=== PATIENT | female | born 1980 | race Caucasian/White ===

== ENCOUNTER 2021-06-22 12:46 | Outpatient (CLI) | payer BC, OTHER ==
--- NOTE | 2021-06-22 14:00 | US ---
EXAMINATION TYPE: US gallbladder DATE OF EXAM: 06/22/2021 COMPARISON: NONE CLINICAL HISTORY: right upper abd quad pain, . RUQ pain x 2 weeks, with occasional nausea EXAM MEASUREMENTS: Liver Length: 18.0 cm Gallbladder Wall: 0.2 cm CBD: 0.4 cm Right Kidney: 13.1 x 6.0 x 5.0 cm Pancreas: Obscured by bowel gas Liver: wnl Gallbladder: wnl Evidence for sonographic Hewitt's sign: No CBD: wnl Right Kidney: No hydronephrosis or masses seen IMPRESSION: 1. Hepatomegaly
[2021-06-22 14:15] LABS: Basophils % (A) 0 %; Eosinophils % (A) 0 %; HCT 32.4 % (34.0-46.0); HGB 10.8 gm/dL (11.4-16.0); Lymphocytes # (A) 0.6 k/uL (1.0-4.8); Lymphocytes % (A) 8 %; MCH 31.1 pg (25.0-35.0); MCHC 33.3 g/dL (31.0-37.0); MCV 93.3 fL (80.0-100.0); Mean Platelet Volume 7.5; Monocytes # (A) 0.7 k/uL (0-1.0); Monocytes % (A) 8 %; Neutrophils # (A) 6.7 k/uL (1.3-7.7); Neutrophils % (A) 83 %; Platelet Count 224 k/uL (150-450); RBC 3.48 m/uL (3.80-5.40); WBC 8.1 k/uL (3.8-10.6)
[2021-06-22 14:25] LABS: ALT 13 U/L (4-34); AST 25 U/L (14-36); African American GFR (CKD) >90 (>60 ml/min/1.73 sqM); Blood Urea Nitrogen 4 mg/dL (7-17); LDH 434 U/L (313-618); Non-African American GFR(CKD) >90 (>60 ml/min/1.73 sqM); Uric Acid 5.3 mg/dL (3.7-7.4)
[2021-06-22 14:32] LABS: Appearance,Urine Clear (Clear); Bilirubin,Urine Negative (Negative); Blood,Urine Negative (Negative); Color,Urine Light Yellow; Glucose,Urine (UA) Negative (Negative); Ketones,Urine 3+ (Negative); Leukocyte Esterase,Urine Negative (Negative); Nitrite,Urine Negative (Negative); PH, Urine 6.5 (5.0-8.0); Protein,Urine Trace (Negative); Specific Gravity,Urine 1.011 (1.001-1.035); Urobilinogen,Urine <2.0 mg/dL (<2.0)
[2021-06-22 14:43] LABS: Creatinine,Urine Random 63.8 mg/dL; Protein/Creatinine Ratio,Urine 0.47
[2021-06-22] MEDS ORDERED: LACTATED RINGERS 1,000 ML IV SCH (15:30)
[2021-06-22] MEDS ORDERED: DEXTROSE 5%-LACTATED RINGERS 1,000 ML IV SCH (15:30)
[2021-06-22] MEDS ORDERED: ACETAMINOPHEN TAB 500 MG TAB PO STA (15:45)
[2021-06-22] MEDS ORDERED: CASIRIVIMAB (REGN10933) (EUA) 600 MG, IMDEVIMAB (REGN10987) (EUA) 600 MG in SODIUM CHLO... IVPB ONE (17:00)
[2021-06-22] MEDS ORDERED: SODIUM CHLORIDE 0.9% 50 ML IVPB ONE (17:00)
[2021-06-22 18:57] VITALS: BP 119/60; PULSE 100; RESP 20; TEMP 97.3
--- NOTE | 2021-07-11 23:50 | P.MSEPDOC ---
Presenting Problems - Arrival Data Date of Arrival on Unit: 06/22/21 Time of Arrival on Unit: 12:46 Mode of Transport: Portable - Complaint OB-Reason for Admission/Chief Complaint: Pain Comment: pt presents with fever this am and headache, and right upper quad pain with orders called over from the office by Dr. Armenta. Medical History - Information : 1 Para: 0 Term: 0 : 0 Abortions: Spontaneous or Elective: 0 Number of Living Children: 0 - Gestational Age Gestational Age by LESLIE (wks/days): 29 Weeks and 3 Days - History Complications: Chronic HTN Review of Systems - Review of Systems Constitutional: No problems Breast: No problems ENT: No problems Cardiovascular: No problems Respiratory: No problems Gastrointestinal: No problems Genitourinary: No problems Musculoskeletal: No problems Neurological: No problems Skin: No problems Vital Signs - Temperature Temperature: 97.3 F Temperature Source: Temporal Artery Scan - Pulse Right Brachial Pulse Rate: 100 Pulse Assessment Method: Automatic Cuff - Respirations Respiratory Rate: 20 Oxygen Delivery Method: Room Air O2 Sat by Pulse Oximetry: 100 - Blood Pressure Right Arm Blood Pressure: 119/60 Blood Pressure Mean: 79 Blood Pressure Source: Automatic Cuff Medical Screen Scoring - Uterine Contractions Frequency From (mins): 0 - Assessment - Baby A Baseline FHR: 150 Heart Rate - NICHD Category: Category I (Normal) NST: Reactive Physician Notification - Physician Notified Physician Notified Date: 06/22/21 Physician Notified Time: 15:14 Physician: Noah Armenta Order Received: Yes - Notification Comment Comment: Pt positive for covid, given monoclonal antibodies, 2 bags of fluids, po tylenol, and obtaining 24 hour urine collection, pt will return tomorrow with urine to run test, and for another NST, bp and temp before discharge wnl, Maternal Triage Index - Maternal Triage Index Presenting for scheduled procedure w/no complaint: No - Stat/Priority 1 Stat Priority 1: No - Urgent/Priority 2 Urgent Priority 2: No - Prompt/Priority 3 Prompt Priority 3: No - Non-Urgent/Priority 4 Non-Urgent Priority 4: No - Scheduled/Requesting Priority 5 Scheduled/Requesting Priority 5: Yes Criteria Met for Priority 5: pt sent in by office per phone call and orders given to dept for PIH labs, covid swab, and ultrasound of the gallbladder Disposition - Disposition OB Disposition: Triage, Discharge to home, Written follow up instructions reviewed Discharge Date: 06/22/21 Discharge Time: 18:30 I agree with the RN Medical Screening Exam: Yes Case reviewed; plan agreed upon as documented in EMR&OBIX.: Yes Diagnosis: COVID-19
== END 2021-06-22 18:30 | disposition home or self-care (01) ==
LOC: FBPOP 12:46
PROVIDERS: ATTEND Obstetrics & Gynecology
DX: O98.512 Other viral diseases complicating pregnancy, second trimester (principal); U07.1 COVID-19; Z3A.29 29 weeks gestation of pregnancy
CPT/HCPCS: 59025; 99215; 96361; 96365; 82570; 84156; 82565; 83615; 84450; 84460; 84520; 84550; 85025; 81003; 87635; 76705; Q0244; 99214

== ENCOUNTER 2021-06-23 15:40 | Outpatient (CLI) | payer BC, OTHER ==
[2021-06-23 16:07] LABS: Total Volume 24 Hour,Urine 2650 mls (800-1800)
[2021-06-23 16:18] LABS: Total Protein 24 Hour,Urine 901 mg/24hr (42.0-225.0)
--- NOTE | 2021-06-23 17:40 | P.PN ---
Progress Note - Text Progress Note Date: 06/23/21 Cold seen and evaluated this afternoon after her 24 urine revealed a protein of 901. The cold is a 40-year-old female with chronic hypertension who is being co-managed with maternal medicine by Dr. Gallegos. She has had right upper quadrant pain for about a month she relates area and there is no change to the pain over the last 24-[address] Burdick had felt that it was her gallbladder. An ultrasound yesterday showed hepatomegaly only no other changes to the gallbladder and no other acute findings within the liver. A protein creatinine ratio at that time was 0.47 so her protein value potentially is come close to doubling in 24 hours. However, her liver enzymes yesterday were completely normal and her platelets were normal. Her blood pressures have all been normal and her last blood pressure was 120/60. There is no other signs or symptoms of preeclampsia she has no peripheral swelling in her deep tendon reflexes are +2. She says that she had a headache earlier in the day but Tylenol has corrected. She has no visual changes. There are no other neurologic signs or symptoms. Her upper epigastric area is mildly tender to palpation but no severe pain is noted. I did discuss her care with the high automotive [employer] specialist that she has been seeing and after discussion she feels she is safe to go home since all of her other labs are normal and she has no other findings. She will need to see Dr. Gallegos in our office sooner than her scheduled appointment. Due to her Covid status, she will come to labor and delivery on Friday for repeat blood pressure check and evaluation. She also will be seeing maternal medicine weekly moving forward with weekly biophysical profiles and NSTs starting at 29-30 weeks. Certainly at this time she may have early mild preeclampsia superimposed on her chronic hypertension which deathly increases her risk of issues. I was very specific in explaining risks of strokes and seizures as well as rapid progression should she have any of the symptoms start she need to come right back to labor and delivery for a thorough evaluation. She does have was essentially reactive category 1 tracing and has no contractions. At this time she remains stable and we will plan discharge home with again follow-up on Friday in in our office for blood pressure check and closer monitoring between she and the high [employer] specialist as a precaution. It is also possible that her Covid testing positive and monoclonal antibodies is affecting some of this and some of her labs and since she is asymptomatic with excellent blood pressures we will try and be a little more conservative with her care for now. I did offer to allow her to stay and repeat the labs in the morning at this time she is declining to do so and feels comfortable going home.
[2021-06-23 18:08] VITALS: BP 122/66; PULSE 87; RESP 18; TEMP 96.8
== END 2021-06-23 18:00 | disposition home or self-care (01) ==
LOC: FBPOP 15:40
PROVIDERS: ATTEND Obstetrics & Gynecology
DX: O26.619 Liver and biliary tract disorders in pregnancy, unspecified trimester (principal); R16.0 Hepatomegaly, not elsewhere classified; Z3A.00 Weeks of gestation of pregnancy not specified
CPT/HCPCS: 59025; 81050; 84156; 99215

== ENCOUNTER 2021-08-03 11:29 | Outpatient (CLI) | payer BC, OTHER ==
[2021-08-03 11:57] LABS: Appearance,Urine Clear (Clear); Bilirubin,Urine Negative (Negative); Blood,Urine Negative (Negative); Color,Urine Yellow; Glucose,Urine (UA) Negative (Negative); Ketones,Urine Negative (Negative); Leukocyte Esterase,Urine Negative (Negative); Mucus,Urine Rare /hpf; Nitrite,Urine Negative (Negative); PH, Urine 6.5 (5.0-8.0); Protein,Urine 1+ (Negative); RBC,Urine 1 /hpf (0-5); Specific Gravity,Urine 1.017 (1.001-1.035); Squamous Epithelial Cell,Urine 2 /hpf (0-4); Urobilinogen,Urine <2.0 mg/dL (<2.0); WBC,Urine 1 /hpf (0-5)
[2021-08-03 12:01] LABS: Creatinine,Urine Random 95.1 mg/dL; Protein/Creatinine Ratio,Urine 0.452
[2021-08-03 12:14] LABS: Basophils % (A) 0 %; Eosinophils # (A) 0.1 k/uL (0-0.7); Eosinophils % (A) 1 %; HCT 33.2 % (34.0-46.0); HGB 11.3 gm/dL (11.4-16.0); Lymphocytes # (A) 2.2 k/uL (1.0-4.8); Lymphocytes % (A) 15 %; MCH 31.1 pg (25.0-35.0); MCHC 33.9 g/dL (31.0-37.0); MCV 91.8 fL (80.0-100.0); Mean Platelet Volume 8.9; Monocytes # (A) 0.5 k/uL (0-1.0); Monocytes % (A) 3 %; Neutrophils # (A) 11.7 k/uL (1.3-7.7); Neutrophils % (A) 80 %; Platelet Count 298 k/uL (150-450); RBC 3.62 m/uL (3.80-5.40); WBC 14.6 k/uL (3.8-10.6)
[2021-08-03 12:36] LABS: ALT 13 U/L (4-34); AST 22 U/L (14-36); African American GFR (CKD) >90 (>60 ml/min/1.73 sqM); Blood Urea Nitrogen 9 mg/dL (7-17); LDH 431 U/L (313-618); Non-African American GFR(CKD) >90 (>60 ml/min/1.73 sqM); Uric Acid 5.2 mg/dL (3.7-7.4)
--- NOTE | 2021-08-03 13:06 | P.MSEPDOC ---
Presenting Problems - Arrival Data Date of Arrival on Unit: 08/03/21 Time of Arrival on Unit: 11:29 Mode of Transport: Ambulatory I agree with the RN Medical Screening Exam: Yes Case reviewed; plan agreed upon as documented in EMR&OBIX.: Yes Diagnosis: GESTATIONAL HTN W/O SIGNIFICANT PROTEINURIA, THIRD TRIMESTER (This patient is a pleasant 40-year-old 4 para 0 female 35-0/7 weeks gestation who is followed by Dr. Gallegos for chronic hypertension and preeclampsia. Patient has been seen by maternal medicine and they have recommended by weekly NSTs and weekly biophysical profiles as well as labs. Patient is on an antihypertensive as well. Patient was in the office today and had a biophysical profile that was 8 out of 8, however her blood pressure was noted to be elevated 150/80. I recommend the patient come to triage for evaluation. Patient's blood pressures here are 138/81-153/75. Most blood pressures are 140s over 80s to 90s. This appears to be consistent with where she has been running. I did repeat her preeclampsia labs which were normal. She did have an elevated protein to creatinine ratio 0.45 but this is actually less then it was previously. Patient does not report any new symptomatology. heart tones are reactive. Per the patient's recommended plan Will continue present management and she will follow up with Dr. Gallegos on Friday as scheduled. I did have a discussion with the patient about indications to return prior to this time. Most likely will need to be delivered at 37 weeks. At this time there is no evidence of maternal or compromise that would require delivery. Patient and I discussed this clinical plan and she is agreeable.)
[2021-08-03 13:11] VITALS: BP 140/95; PULSE 101; RESP 18; TEMP 97.8
== END 2021-08-03 12:45 | disposition home or self-care (01) ==
LOC: FBPOP 11:29
PROVIDERS: ATTEND Obstetrics & Gynecology
DX: O12.13 Gestational proteinuria, third trimester (principal); Z3A.35 35 weeks gestation of pregnancy
CPT/HCPCS: 59025; 81001; 82565; 82570; 83615; 84156; 84450; 84460; 84520; 84550; 85025

== ENCOUNTER 2021-08-10 10:32 | Inpatient (IN) | payer BC, OTHER ==
[2021-08-10 11:13] LABS: Appearance,Urine Clear (Clear); Bilirubin,Urine Negative (Negative); Blood,Urine Negative (Negative); Color,Urine Light Yellow; Glucose,Urine (UA) Negative (Negative); Ketones,Urine Negative (Negative); Leukocyte Esterase,Urine Negative (Negative); Nitrite,Urine Negative (Negative); Protein,Urine Trace (Negative); Specific Gravity,Urine 1.006 (1.001-1.035); Urobilinogen,Urine <2.0 mg/dL (<2.0)
[2021-08-10 11:26] LABS: Creatinine,Urine Random 20.3 mg/dL; Protein/Creatinine Ratio,Urine 1.478
[2021-08-10 11:37] LABS: Basophils % (A) 0 %; Eosinophils # (A) 0.1 k/uL (0-0.7); Eosinophils % (A) 1 %; HCT 32.9 % (34.0-46.0); HGB 11.2 gm/dL (11.4-16.0); Lymphocytes # (A) 2.4 k/uL (1.0-4.8); Lymphocytes % (A) 20 %; MCH 31.4 pg (25.0-35.0); MCHC 34.1 g/dL (31.0-37.0); MCV 92.2 fL (80.0-100.0); Mean Platelet Volume 9.2; Monocytes # (A) 0.4 k/uL (0-1.0); Monocytes % (A) 3 %; Neutrophils # (A) 9.3 k/uL (1.3-7.7); Neutrophils % (A) 75 %; Platelet Count 256 k/uL (150-450); RBC 3.57 m/uL (3.80-5.40); RDW 13.7 % (11.5-15.5); WBC 12.3 k/uL (3.8-10.6)
[2021-08-10 11:52] LABS: ALT 14 U/L (4-34); AST 23 U/L (14-36); African American GFR (CKD) >90 (>60 ml/min/1.73 sqM); Blood Urea Nitrogen 9 mg/dL (7-17); LDH 462 U/L (313-618); Non-African American GFR(CKD) >90 (>60 ml/min/1.73 sqM); Uric Acid 5.1 mg/dL (3.7-7.4)
[2021-08-10] MEDS ORDERED: LIDOCAINE 1% (PF) 10 MG/ML (30 ML SDV) SQ PRN (12:31)
[2021-08-10] MEDS ORDERED: OXYTOCIN 10 UNIT/ML 1 ML VIAL IM PRN (12:31)
[2021-08-10] MEDS ORDERED: AMPICILLIN 2,000 MG in SODIUM CHLORIDE 0.9% 100 ML IVPB STA (12:31)
[2021-08-10] MEDS ORDERED: CARBOPROST TROMETHAMINE 250 MCG/ML 1 ML AMP IM PRN (12:31)
[2021-08-10] MEDS ORDERED: TERBUTALINE 1 MG/ML VIAL SQ PRN (12:31)
[2021-08-10] MEDS ORDERED: METHYLERGONOVINE 0.2 MG/ML 1 ML AMP IM PRN (12:31)
[2021-08-10] MEDS: LACTATED RINGERS 1,000 ML IV SCH ×2 (12:45→20:20)
[2021-08-10] MEDS ORDERED: OXYTOCIN 30 UNITS/500 ML NS 30 UNIT in SALINE 1 500ML.BAG IV SCH (12:45)
[2021-08-10] MEDS: BETAMET ACET-BETAMETH SOD PHOS 6 MG/ML MDV IM SCH (12:45)
[2021-08-10] MEDS: ACETAMINOPHEN TAB 325 MG TAB PO PRN ×2 (13:59→22:10)
[2021-08-10] MEDS: AMPICILLIN 1,000 MG in SODIUM CHLORIDE 0.9% 50 ML IVPB SCH ×2 (16:45→21:00)
[2021-08-10] MEDS: BUTORPHANOL 1 MG/ML 1 ML VIAL IV PRN ×2 (16:46→18:43)
--- NOTE | 2021-08-10 18:10 | P.HPOB ---
History of Present Illness H&P Date: 08/10/21 Chief Complaint: Chronic hypertension with superimposed preeclampsia with severe features This is a 40-year-old female 4 para 0 with an estimated date of confinement of 09/07/2021, estimated gestational age of 36-0/7 weeks, who presents to labor and delivery after being seen in the office today for an NST due to chronic hypertension and found to have a blood pressure of 160/110. She did state she is had blood pressures at home yesterday that were 160/105. She t hen took an extra dose of her clonidine for the elevated blood pressure. She does state she is been having headaches daily and Tylenol is not taking it away. She is also had increased swelling in her hands and face. She does have some epigastric pain. Labs were drawn and all of her preeclampsia labs were normal other than her protein to creatinine ratio was 1.478. In light of her worsening blood pressures despite antihypertensives and symptoms consistent with severe features, the decision is made to proceed with induction of labor. She has irregular contractions. Group B streptococcus is positive. has also been complicated by Covid 19 detected 06/22/2021. Last ultrasound on 08/03/2021 showed a fetus in the vertex presentation with estimated weight of 6 lbs. 13 oz. and SOLIS of 18.24 cm labs: Hepatitis B surface antigen-negative HIV-negative Rubella-nonimmune Blood type-A+ Hemoglobin-11.7 Toxoplasma-negative Syphilis antibody-negative nonreactive 1 hour Glucola-145 Three-hour Glucola-within normal limits Group B streptococcus-positive GC/Chlamydia/Trichomonas-negative Pap smear with HPV-negative Review of Systems Constitutional: Denies chills, Denies fever Eyes: denies blurred vision, denies pain Ears, nose, mouth and throat: Reports headache Cardiovascular: Denies chest pain, Denies shortness of breath Respiratory: Denies cough Gastrointestinal: Reports abdominal pain (Irregular contractions) Genitourinary: Reports pelvic pain, Reports Musculoskeletal: Reports low back pain Musculoskeletal: bilateral: ankle swelling, foot swelling Neurological: Denies numbness, Denies weakness Psychiatric: Reports anxiety, Reports depression, Reports difficulty concentrating Past Medical History Past Medical History: Hypertension, Thyroid Disorder Additional Past Medical History / Comment(s): b 12 deficiency History of Any Multi-Drug Resistant Organisms: None Reported Past Surgical History: Breast Surgery, Orthopedic Surgery (Carpal tunnel left), Tonsillectomy Additional Past Surgical History / Comment(s): breast reduction, glaucoma surgery Past Anesthesia/Blood Transfusion Reactions: No Reported Reaction Past Psychological History: ADD/ADHD, Bipolar, Depression Smoking Status: Vaper Past Alcohol Use History: None Reported Past Drug Use History: None Reported Additional Drug Use History / Comment(s): 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 She has been off of Suboxone since at least 2015 - Past Family History Mother Family Medical History: Deep Vein Thrombosis (DVT) Medications and Allergies Home Medications Medication Instructions Recorded Confirmed Type Pnv,Calcium 72/Iron/Folic Acid 1 each PO DAILY 08/17/15 08/10/21 History [ Plus Tablet] lamoTRIgine [LaMICtal] 100 mg PO DAILY 09/11/15 08/10/21 History Vilazodone HCl [Viibryd] 20 mg PO DAILY 06/22/21 08/10/21 History Levothyroxine Sodium [Synthroid] 150 mcg PO DAILY 06/23/21 08/10/21 History RX: Aspirin 81 mg PO DAILY 06/23/21 08/10/21 History cloNIDine HCL [Catapres] 0.3 mg PO TID 06/23/21 08/10/21 History Allergies Allergy/AdvReac Type Severity Reaction Status Date / Time No Known Allergies Allergy Verified 08/10/21 10:40 Exam Osteopathic Statement: *. No significant issues noted on an osteopathic structural exam other than those noted in the History and Physical/Consult. Vital Signs Temp Pulse Resp BP 08/10/21 13:47 98.2 F 94 16 140/87 Intake and Output 08/10/21 08/10/21 08/10/21 06:59 14:59 22:59 Other: # Voids 2 Weight 100.244 kg HEENT: Face is puffy and red Heart: Regular rate and rhythm Lungs: Clear to auscultation bilaterally Abdomen: Cervix: 1-1/2 cm/80%/-2 station heart tones: Reactive, category 1 Contractions: Rare Extremities: Negative Homans Results Result Diagrams: 08/10/21 11:25 08/10/21 11:25 Abnormal Lab Results - Last 24 Hours (Table) 08/10/21 08/10/21 08/10/21 Range/Units 11:02 11:25 11:25 WBC 12.3 H (3.8-10.6) k/uL RBC 3.57 L (3.80-5.40) m/uL Hgb 11.2 L (11.4-16.0) gm/dL Hct 32.9 L (34.0-46.0) % Neutrophils # 9.3 H (1.3-7.7) k/uL Creatinine 0.51 L (0.52-1.04) mg/dL Urine Protein Trace H (Negative) Assessment and Plan (1) 36 weeks gestation of Current Visit: Yes Status: Acute Code(s): Z3A.36 - 36 WEEKS GESTATION OF SNOMED Code(s): 49021374 (2) Chronic hypertension with superimposed pre-eclampsia Current Visit: Yes Status: Acute Code(s): O11.9 - PRE-EXISTING HYPERTENSION WITH PRE-ECLAMPSIA, UNSP TRIMESTER SNOMED Code(s): 62070367 (3) Group B Streptococcus carrier, +RV culture, currently Current Visit: Yes Status: Acute Code(s): O99.820 - STREPTOCOCCUS B CARRIER STATE COMPLICATING SNOMED Code(s): 6940669107203 Plan: Admission for induction of labor due to chronic hypertension with superimposed preeclampsia with severe features. Will give Celestone 12 mg every 12 hours for 2 doses. Will start oxytocin induction of labor with artificial rupture of membranes. Expectant management. Epidural anesthesia if desired. Will monitor blood pressures closely. Antibiotic prophylaxis due to group B streptococcus. Patient is counseled regarding the need for delivery and is in agreement.
[2021-08-10] MEDS ORDERED: cloNIDine HCL 0.1 MG TAB PO STA (18:17)
[2021-08-10] MEDS ORDERED: SODIUM CHLORIDE 0.9% 100 ML BAG ONE (20:46)
[2021-08-10] MEDS ORDERED: ROPIVACAINE 5MG/ML 20ML VIAL ONE (20:46)
[2021-08-10] MEDS ORDERED: fentaNYL (PF) 50 MCG/ML 5 ML AMP ONE (20:46)
[2021-08-11] MEDS ORDERED: CITRIC ACID-SODIUM CITRATE 15 ML CUP PO ONE (00:04)
[2021-08-11] MEDS ORDERED: ONDANSETRON 4 MG/2 ML VIAL ONE (00:11)
[2021-08-11] MEDS ORDERED: KETOROLAC 15 MG/ML 1 ML VIAL ONE (00:11)
[2021-08-11] MEDS ORDERED: DEXAMETHASONE SOD PHOSPHATE 4 MG/ML 1 ML VIAL ONE (00:11)
[2021-08-11] MEDS ORDERED: HYDROmorphone (PF) 1 MG/ML ONE (00:11)
[2021-08-11] MEDS ORDERED: MIDAZOLAM 2 MG/2 ML VIAL ONE (00:11)
[2021-08-11] MEDS ORDERED: LANOLIN CREAM 5 GM TUBE TOPICAL PRN (01:30)
[2021-08-11] MEDS ORDERED: METOCLOPRAMIDE 5 MG/ML 2 ML VIAL IVP PRN (01:30)
[2021-08-11] MEDS ORDERED: ONDANSETRON 4 MG/2 ML VIAL IVP PRN (01:30)
[2021-08-11] MEDS ORDERED: diphenhydrAMINE 50 MG CAP PO PRN (01:30)
[2021-08-11] MEDS ORDERED: diphenhydrAMINE 25 MG CAP PO PRN (01:30)
[2021-08-11] MEDS ORDERED: HYDROmorphone PCA 10 MG/50 ML BAG IV PRN (01:30)
[2021-08-11] MEDS ORDERED: CALCIUM GLUCONATE 1 GM/10 ML VIAL IV PRN (01:30)
[2021-08-11] MEDS ORDERED: MEASLES-MUMPS-RUBELLA VACC/PF 12,500 UNIT/0.5 ML VIAL SQ ONE (01:30)
[2021-08-11] MEDS ORDERED: OXYTOCIN 30 UNITS/500 ML NS 30 UNIT in SALINE 1 500ML.BAG IV SCH (01:30)
[2021-08-11] MEDS ORDERED: ZOLPIDEM 5 MG TAB PO PRN (01:30)
[2021-08-11] MEDS ORDERED: HYDROCORTISONE 2.5% RECTAL CREAM 30 GM TUBE RECTAL PRN (01:30)
[2021-08-11] MEDS ORDERED: LABETALOL 5 MG/ML VIAL MDV IVP PRN ×3 (01:30)
[2021-08-11] MEDS ORDERED: NALOXONE 0.4 MG/ML 1 ML VIAL IV PRN (01:30)
[2021-08-11] MEDS ORDERED: diphenhydrAMINE 50 MG/ML 1 ML VIAL IVP PRN ×2 (01:30)
[2021-08-11] MEDS ORDERED: MAGNESIUM SULFATE GM 6 GM in SODIUM CHLORIDE 0.9% 100 ML IVPB ONE (01:30)
[2021-08-11] MEDS ORDERED: hydrALAZINE HCL 20 MG/ML 1 ML VIAL IVP PRN (01:30)
--- NOTE | 2021-08-11 01:36 | P.OP ---
Date of Procedure: 08/11/21 Preoperative Diagnosis: 1. Intrauterine at 36-2/7 weeks. 2. Chronic hypertension with superimposed preeclampsia with severe features. 3. Category 3 heart tones. 4. Advanced maternal age 5. Family planning Postoperative Diagnosis: Same Procedure(s) Performed: Primary low transverse section with bilateral partial salpingectomy Anesthesia: epidural (With Duramorph) Surgeon: Pham Gallegos [place] Lifeguard #1: Cassandra Mccormick Estimated Blood Loss (ml): 500 Pathology: other (Placenta, portions of right and left fallopian tubes) Condition: stable Disposition: floor Indications for Procedure: This is a 40-year-old female 4 para 0 at 36 and one sevenths weeks who presented from the office with elevated blood pressures. She was diagnosed with chronic hypertension with superimposed severe preeclampsia and was started on oxytocin induction of labor. She was also given Celestone. She did receive ampicillin while in labor for group B streptococcus. She reached complete dilation and began pushing. Shortly after she started pushing, the heart tones did become slightly tachycardic initially at 160-170 with decreased variability. She later progressed to heart tones in the 190s with decreased variability. Oxytocin was shut off 2 times during the pushing process and each time the oxytocin was turned off the heart tones did return to normal baseline. The patient was not able to bring the baby down very quickly with pushing and was still having trouble feeling to push. At this time a patient centered huddle was held and the need for expedited delivery was discussed with the patient and her family. I advised her that is my recommendation to proceed with delivery and after all her questions were answered the patient agreed to proceed with the recommended plan. The patient has requested tubal ligation and states she had planned to have a tubal ligation since the beginning of her . I have discussed the risks, benefits, and alternative therapies for the above- mentioned procedure and for both sedation/anesthesia as well as necessary blood products administration, if indicated, as they pertain to this patient. The patient has indicated her understanding and acceptance of the risks and procedures discussed. Operative Findings: A viable male infant is noted in the vertex presentation with nuchal cord 1. Infant weight is 7 pounds 1.2 ounces. Apgars are pending at this time. Normal uterus tubes and ovaries are noted. There is a paratubal cyst noted on the left fallopian tube. Description of Procedure: The patient is taken to the operating room where she is placed in the dorsal supine position with leftward tilt while epidural anesthesia is bolused. At this time heart tones in the room were noted to be 150s to 160s with moderate variability. The scalp electrode is removed and the legs are strapped as usual. She is prepped and draped in the normal sterile fashion. Skin was tested and found to be adequately anesthetized. A Pfannenstiel skin incision was made with a scalpel. A second knife was used to carry the incision down to the underlying layer of fascia. The fascia was nicked in the midline with a scalpel and then extended laterally bilaterally with Cee scissors. The anterior lip of the fascia was grasped with 2 Jeanine clamps and then dissected off the underlying rectus muscle in the midline with Cee scissors. The inferior aspect of the fascial incision was grasped with 2 Jeanine clamps and dissected off the underlying rectus muscle and the midline with Cee scissors. Next the peritoneum layer was tented up with 2 hemostats and then entered sharply with the scalpel. The incision is extended superiorly and inferiorly with Metzenbaum scissors. Next a DeLee retractor is placed. The vesicouterine peritoneum is entered sharply with Metzenbaum scissors and extended laterally bilaterally with Metzenbaum scissors and then the bladder flap is pushed inferiorly. The lower uterine segment is incised in transverse fashion with the scalpel and then bluntly entered with a hemostat. Clear fluid is noted. The incision was then extended laterally bilaterally with 2 fingers. Next the 's head is delivered through the incision. Nose and mouth are bulb suctioned. Nuchal cord 1 was reduced around the infant's head. The remainder of the is easily delivered and placed on mother's abdomen. Cord is clamped and cut. Infant is taken to warmer by nursing staff. Uterine fundus is gently massaged and placenta is delivered manually. Uterus is exteriorized and cleared of all clots and debris. Uterine incision is closed with 0 Vicryl suture in a running locked fashion. A second layer of 0 Vicryl suture is used in a running fashion for hemostasis. Once adequate hemostasis as assured, the vesicouterine peritoneum is reapproximated with 2-0 Vicryl suture in a running fashion. Attention is then turned to the right fallopian tube. The midportion of the tube is grasped with a hemostat and the mesosalpinx is entered with Bovie cautery. 0 Vicryl suture is tied 2 times around both the proximal and distal portion of the tube. The knuckle of tube was then removed with Metzenbaum scissors. The ends of the tube were then cauterized with Bovie cautery. Posterior cul-de-sac is suctioned of all clots and debris. Uterus is returned to the abdomen. Incision is noted to be hemostatic. Peritoneal layer is closed with 0 Vicryl suture in a running fashion. Muscle layer is reapproximated with 0 Vicryl suture in interrupted fashion. Fascia layer is then closed with 0 PDS suture with 2 sutures meeting in the midline and the knots buried in either side and in the midline. The subcutaneous tissue was then closed with 2-0 Vicryl suture. Skin layer was then closed with jduy. All sponge and needle counts are correct. The patient is taken to recovery room in stable condition.
[2021-08-11] MEDS: BETAMET ACET-BETAMETH SOD PHOS 6 MG/ML MDV IM SCH (01:39)
[2021-08-11] MEDS: cloNIDine HCL 0.1 MG TAB PO SCH ×4 (01:50→22:01)
[2021-08-11] MEDS ORDERED: MAGNESIUM SULFATE 500 MG/ML 20 ML VIAL ONE (01:52)
[2021-08-11] MEDS ORDERED: SODIUM CHLORIDE 0.9% 100 ML BAG IV ONE (01:52)
[2021-08-11] MEDS: LACTATED RINGERS 1,000 ML IV SCH ×3 (02:01→14:22)
[2021-08-11] MEDS: MAGNESIUM SULFATE-WATER PMX 20 GM in WATER FOR INJECTION 1 500ML.BAG IV SCH ×2 (02:23→12:18)
[2021-08-11] MEDS: ACETAMINOPHEN IV (For NPO) 1,000 MG in EMPTY BAG 1 BAG IVPB SCH ×2 (03:00→14:22)
[2021-08-11] MEDS: ACETAMINOPHEN TAB 500 MG TAB PO SCH ×4 (05:56→21:09)
[2021-08-11] MEDS: KETOROLAC 30 MG/ML 1 ML VIAL IVP SCH ×3 (06:08→18:23)
[2021-08-11] MEDS: LEVOTHYROXINE 75 MCG TAB PO SCH (06:08)
[2021-08-11] MEDS: AMPICILLIN 1,000 MG in SODIUM CHLORIDE 0.9% 50 ML IVPB SCH (06:17)
[2021-08-11] MEDS: IBUPROFEN 600 MG TAB PO SCH ×3 (07:46→19:02)
[2021-08-11] MEDS: SENNOSIDES-DOCUSATE SODIUM 1 EACH TAB PO SCH ×2 (07:53→22:28)
[2021-08-11] MEDS: lamoTRIgine 100 MG TAB PO SCH (09:11)
[2021-08-11] MEDS: PRENATAL VIT-IRON-FOLIC ACID 1 EACH CAP PO SCH (09:11)
[2021-08-11] MEDS: Vilazodone Hcl [Viibryd] PO SCH (09:14)
--- NOTE | 2021-08-11 10:29 | P.PN ---
Progress Note - Text Progress Note Date: 08/11/21 (722) Anesthesia Postop day 1 Subjective: Status Post section with Duramorph. Patient seen and examined. Mild pruritus.. VAS 6 out of 10 with coughing.. No nausea or vomiting. Afebrile. Gross lower extremity strength intact. Without apparent anesthetic complications. Objective: Vital signs reviewed Heart: Regular Rate Lungs: Good chest excursion Abdomen: Appears nondistended Assessment: Status post with Duramorph postop day 1 Plan: Continue current care with your medical management. Anticipated and the Duramorph around midnight tonight, you may see increased pain needs around this time. This note was dictated using LP33[employer]TV software. Please be advised there is a potential for misspellings or errors in breaker mechanic.
--- NOTE | 2021-08-11 13:33 | P.PNOBGPC ---
Subjective - Subjective Principal diagnosis: Status post primary section with TL POD #0 Interval history: Patient is doing better now. Her pain is tolerable while she is lying in bed but does increase when she starts moving around. She is having some itching that is controlled with Benadryl. She has been able to visit her baby. Her pulse rate was as high as the 120s but has come down to 105 or lower since she was able to visit her baby. Her blood pressures have been stable. She is not passing flatus or bowel movement yet. Patient reports: Reports pain well controlled, Denies nauseated : other (In level I nursery) Objective - Vital Signs Latest vital signs: Vital Signs Temp Pulse Resp BP Pulse Ox 08/11/21 12:00 98.2 F 103 H 18 131/73 97 08/11/21 11:00 100.1 F H 115 H 18 129/76 98 08/11/21 10:00 99.4 F 125 H 18 130/92 98 08/11/21 09:00 99.3 F 123 H 18 148/79 98 08/11/21 07:30 100.0 F H 124 H 18 160/83 08/11/21 07:00 125 H 18 146/79 98 08/11/21 06:00 98.9 F 139 H 16 158/81 99 08/11/21 05:00 120 H 15 164/81 99 08/11/21 04:00 99.0 F 123 H 16 145/68 98 08/11/21 03:15 118 H 16 148/63 98 08/11/21 03:00 125 H 16 148/80 99 08/11/21 02:45 125 H 16 156/65 97 08/11/21 02:44 135 H 16 156/65 08/11/21 02:30 114 H 16 161/79 96 08/11/21 02:15 116 H 16 158/79 98 08/11/21 02:14 98.1 F 116 H 16 158/79 08/11/21 02:00 116 H 17 08/11/21 01:59 116 H 17 159/76 08/11/21 01:44 114 H 17 158/76 08/11/21 01:35 98.8 F 114 H 16 147/66 100 08/11/21 01:20 116 H 18 143/86 08/10/21 13:47 98.2 F 94 16 140/87 Intake and Output 08/10/21 08/11/21 08/11/21 22:59 06:59 14:59 Intake Total 595.833 Output Total 1520 375 Balance -1520 220.833 Intake: Intake, IV Titration 495.833 Amount Magnesium Sulfate-Water 495.833 Pmx 20 gm In Water For Injection 1 500ml.bag @ 2 GM/HR 50 mls/hr IV .Q10H [facility] Rx#:[id number] Oral 100 Output: Urine 1000 375 Uretheral (Raygoza) 150 Estimated Blood Loss 500 Output, Quantitative 20 Blood Loss Other: Voiding Method Indwelling Catheter Indwelling Catheter # Voids 1 - Exam Extremities: Present: edema. Absent: tenderness Abdomen: Present: normal appearance, soft (Faint bowel sounds 4). Absent: tenderness Incision: Present: normal, dry, intact. Absent: erythematous Uterus: Present: normal, firm. Absent: tenderness Assessment and Plan Assessment: Status post primary low transverse section with bilateral partial salpingectomy postoperative day #0 Chronic hypertension with superimposed preeclampsia-on magnesium sulfates seizu re prophylaxis (1) 36 weeks gestation of Current Visit: Yes Status: Acute Code(s): Z3A.36 - 36 WEEKS GESTATION OF SNOMED Code(s): 77201362 (2) Chronic hypertension with superimposed pre-eclampsia Current Visit: Yes Status: Acute Code(s): O11.9 - PRE-EXISTING HYPERTENSION WITH PRE-ECLAMPSIA, UNSP TRIMESTER SNOMED Code(s): 40312384 (3) Group B Streptococcus carrier, +RV culture, currently Current Visit: Yes Status: Acute Code(s): O99.820 - STREPTOCOCCUS B CARRIER STATE COMPLICATING SNOMED Code(s): 3523740028623 Plan: Continue with magnesium sulfate prophylaxis for 24 hours after delivery. May advance diet as tolerated after flatus. Will continue with close monitoring.
[2021-08-11] MEDS: SIMETHICONE 80 MG CHEWABLE PO PRN (15:06)
[2021-08-12] MEDS: KETOROLAC 30 MG/ML 1 ML VIAL IVP SCH ×2 (00:04→08:46)
[2021-08-12] MEDS: MAGNESIUM SULFATE-WATER PMX 20 GM in WATER FOR INJECTION 1 500ML.BAG IV SCH (00:13)
[2021-08-12] MEDS: LACTATED RINGERS 1,000 ML IV SCH ×3 (02:50→06:38)
[2021-08-12] MEDS: LEVOTHYROXINE 75 MCG TAB PO SCH (06:20)
[2021-08-12] MEDS: ACETAMINOPHEN TAB 500 MG TAB PO SCH ×3 (06:20→19:37)
[2021-08-12] MEDS: IBUPROFEN 600 MG TAB PO SCH ×4 (06:38→22:02)
[2021-08-12] MEDS: cloNIDine HCL 0.1 MG TAB PO SCH ×3 (08:48→21:59)
[2021-08-12] MEDS: SENNOSIDES-DOCUSATE SODIUM 1 EACH TAB PO SCH ×2 (08:48→21:29)
[2021-08-12] MEDS: PRENATAL VIT-IRON-FOLIC ACID 1 EACH CAP PO SCH (08:48)
[2021-08-12] MEDS: Vilazodone Hcl [Viibryd] PO SCH (08:49)
[2021-08-12] MEDS: lamoTRIgine 100 MG TAB PO SCH (08:49)
--- NOTE | 2021-08-12 11:54 | P.PNOBGPC ---
Subjective - Subjective Principal diagnosis: Status post primary section with TL POD #2 Interval history: Patient is doing better today. She is passing flatus but no bowel movement yet. She is urinating without difficulty now. She is currently off the magnesium sulfate. Her blood pressures did start to increase a little bit this morning but she is controlled on her clonidine. Will continue with postoperative and care. Baby is still in level I nursery and she is pumping her breast milk. Bleeding is minimal. Patient reports: Reports appetite normal, Reports voiding normally, Reports pain well controlled [place]: other (In level I nursery) Objective - Vital Signs Latest vital signs: Vital Signs Temp Pulse Resp BP Pulse Ox 08/12/21 10:30 86 18 132/82 96 08/12/21 08:00 97.7 F 90 18 164/85 100 08/12/21 06:00 97.3 F L 75 16 148/88 98 08/12/21 00:00 97.0 F L 81 16 145/88 99 08/11/21 22:00 84 16 143/85 08/11/21 20:00 97.8 F 93 16 137/79 98 08/11/21 16:00 96.9 F L 83 18 121/56 99 08/11/21 15:19 96.9 F L 89 18 119/60 99 08/11/21 13:00 98.1 F 92 18 106/59 98 08/11/21 12:00 98.2 F 103 H 18 131/73 97 Intake and Output 08/11/21 08/12/21 08/12/21 22:59 06:59 14:59 Intake Total 625 Output Total 1150 1050 600 Balance -525 -1050 -600 Intake: Intake, IV Titration 500 Amount Magnesium Sulfate-Water 500 Pmx 20 gm In Water For Injection 1 500ml.bag @ 2 GM/HR 50 mls/hr IV .Q10H [facility] Rx#:[id number] Oral 125 Output: Urine 1150 1050 Emesis 0 Other 600 Other: Voiding Method Indwelling Catheter # Voids 0 Weight 98.43 kg - Exam Extremities: Present: edema (2+ pitting edema) Abdomen: Present: soft (Positive bowel sounds 4). Absent: distention, tender ness Incision: Present: normal, dry, intact. Absent: erythematous Uterus: Present: normal, firm. Absent: tenderness Assessment and Plan Assessment: Status post primary low transverse section with bilateral partial salpingectomy postoperative day #1 Chronic hypertension with superimposed preeclampsia with severe features-status post magnesium sulfate seizure prophylaxis (1) 36 weeks gestation of Current Visit: Yes Status: Acute Code(s): Z3A.36 - 36 WEEKS GESTATION OF SNOMED Code(s): 67473972 (2) Chronic hypertension with superimposed pre-eclampsia Current Visit: Yes Status: Acute Code(s): O11.9 - PRE-EXISTING HYPERTENSION WITH PRE-ECLAMPSIA, UNSP TRIMESTER SNOMED Code(s): 29297459 (3) Group B Streptococcus carrier, +RV culture, currently Current Visit: Yes Status: Acute Code(s): O99.820 - STREPTOCOCCUS B CARRIER STATE COMPLICATING SNOMED Code(s): 1183587296232 Plan: Continue with postoperative and care. Will advance diet as tolerated. May shower. Will continue with current clonidine 3 times a day.
[2021-08-12] MEDS ORDERED: LABETALOL 200 MG TAB PO STA (12:09)
[2021-08-12 12:17] LABS: Basophils % (A) 0 %; Eosinophils % (A) 0 %; HCT 29.8 % (34.0-46.0); HGB 9.8 gm/dL (11.4-16.0); Hypochromasia Slight; Lymphocytes # (A) 3.3 k/uL (1.0-4.8); Lymphocytes % (A) 21 %; MCH 31.2 pg (25.0-35.0); MCHC 32.8 g/dL (31.0-37.0); MCV 95.1 fL (80.0-100.0); Mean Platelet Volume 7.7; Monocytes # (A) 0.7 k/uL (0-1.0); Monocytes % (A) 4 %; Neutrophils # (A) 11.8 k/uL (1.3-7.7); Neutrophils % (A) 73 %; Platelet Count 276 k/uL (150-450); RBC 3.13 m/uL (3.80-5.40); RDW 14.6 % (11.5-15.5); WBC 16.1 k/uL (3.8-10.6)
[2021-08-12 12:25] LABS: ALT 13 U/L (4-34); AST 26 U/L (14-36); LDH 684 U/L (313-618)
[2021-08-12] MEDS: SIMETHICONE 80 MG CHEWABLE PO PRN (13:55)
[2021-08-13] MEDS: ACETAMINOPHEN TAB 500 MG TAB PO SCH ×4 (02:37→22:56)
[2021-08-13] MEDS: IBUPROFEN 600 MG TAB PO SCH ×4 (02:37→19:48)
[2021-08-13] MEDS: LEVOTHYROXINE 75 MCG TAB PO SCH (06:02)
[2021-08-13] MEDS: SENNOSIDES-DOCUSATE SODIUM 1 EACH TAB PO SCH ×2 (07:52→19:48)
[2021-08-13] MEDS: PRENATAL VIT-IRON-FOLIC ACID 1 EACH CAP PO SCH (07:54)
[2021-08-13] MEDS: lamoTRIgine 100 MG TAB PO SCH (07:56)
[2021-08-13] MEDS: cloNIDine HCL 0.1 MG TAB PO SCH ×3 (07:58→22:55)
--- NOTE | 2021-08-13 08:46 | P.PNOBGPC ---
Subjective - Subjective Principal diagnosis: Status post primary section with TL POD #2 Interval history: Patient is doing okay. She states her pain is not completely controlled. She states the oxycodone works for a very short time and then wears off. She is passing flatus and bowel movement. She is urinating without difficulty. She is pumping her breast milk. Lochia has been very minimal. Baby is in level I nursery. Patient reports: Reports appetite normal, Reports voiding normally, Reports pain well controlled, Reports ambulating normally [place]: other (In level I nursery) Objective - Vital Signs Latest vital signs: Vital Signs Temp Pulse Resp BP Pulse Ox 08/13/21 04:00 97.9 F 79 16 152/89 98 08/13/21 00:00 98.0 F 84 16 118/75 98 08/12/21 20:00 97.6 F 78 16 124/76 97 08/12/21 16:00 98.1 F 76 18 143/83 97 08/12/21 12:55 104 H 18 120/72 96 08/12/21 12:00 98.0 F 96 18 161/97 98 08/12/21 10:30 86 18 132/82 96 - Exam Extremities: Present: edema (2+ pitting edema). Absent: tenderness Abdomen: Present: normal appearance, soft (Positive bowel sounds 4). Absent: distention, tenderness Incision: Present: normal, dry, intact. Absent: erythematous Uterus: Present: normal, firm. Absent: tenderness - Labs Labs: Abnormal Lab Results - Last 24 Hours (Table) 08/12/21 08/12/21 Range/Units 12:01 12:01 WBC 16.1 H (3.8-10.6) k/uL RBC 3.13 L (3.80-5.40) m/uL Hgb 9.8 L (11.4-16.0) gm/dL Hct 29.8 L (34.0-46.0) % Neutrophils # 11.8 H (1.3-7.7) k/uL Lactate Dehydrogenase 684 H (313-618) U/L Assessment and Plan Assessment: Status post primary low transverse section with bilateral partial salpingectomy postoperative day #2 Chronic hypertension with superimposed preeclampsia with severe features-status post magnesium sulfate for seizure prophylaxis (1) 36 weeks gestation of Current Visit: Yes Status: Acute Code(s): Z3A.36 - 36 WEEKS GESTATION OF SNOMED Code(s): 82856487 (2) Chronic hypertension with superimposed pre-eclampsia Current Visit: Yes Status: Acute Code(s): O11.9 - PRE-EXISTING HYPERTENSION WITH PRE-ECLAMPSIA, UNSP TRIMESTER SNOMED Code(s): 95758410 (3) Group B Streptococcus carrier, +RV culture, currently Current Visit: Yes Status: Acute Code(s): O99.820 - STREPTOCOCCUS B CARRIER STATE COMPLICATING SNOMED Code(s): 2532618731459 Plan: Continue with postoperative care. Encouraged ambulation. We'll continue to monitor blood pressures closely. She is currently still on her clonidine 3 times a day. Patient is encouraged to take her medications on a time schedule so that she does not get behind on pain.
[2021-08-13] MEDS: Vilazodone Hcl [Viibryd] PO SCH (19:32)
[2021-08-14] MEDS: IBUPROFEN 600 MG TAB PO SCH ×3 (03:39→19:43)
[2021-08-14] MEDS: LEVOTHYROXINE 75 MCG TAB PO SCH (06:48)
[2021-08-14] MEDS: ACETAMINOPHEN TAB 500 MG TAB PO SCH ×2 (06:48→17:53)
[2021-08-14] MEDS: SENNOSIDES-DOCUSATE SODIUM 1 EACH TAB PO SCH ×2 (08:24→19:43)
[2021-08-14] MEDS: lamoTRIgine 100 MG TAB PO SCH (08:24)
[2021-08-14] MEDS: PRENATAL VIT-IRON-FOLIC ACID 1 EACH CAP PO SCH (08:24)
[2021-08-14] MEDS: cloNIDine HCL 0.1 MG TAB PO SCH ×3 (08:25→22:03)
[2021-08-14] MEDS: Vilazodone Hcl [Viibryd] PO SCH (08:26)
--- NOTE | 2021-08-14 09:03 | P.PNOBGPC ---
Subjective - Subjective Principal diagnosis: Status post primary section with TL POD #3 Interval history: Patient is doing okay. She is sore around her incision. She has noticed some bruising around the incision. She is ambulating. She is passing flatus and bowel movement. She is urinating without difficulty. She is complaining of some swelling in her legs. Lochia has been minimal. Patient reports: Reports appetite normal, Reports voiding normally, Reports pain well controlled, Reports ambulating normally : other (In level I nursery), bottle feeding Objective - Vital Signs Latest vital signs: Vital Signs Temp Pulse Resp BP Pulse Ox 08/14/21 03:47 79 16 150/89 96 08/14/21 00:45 97.5 F L 84 16 147/89 97 08/13/21 22:50 91 18 145/91 97 08/13/21 17:52 143/84 08/13/21 16:00 98.0 F 78 16 158/99 08/13/21 12:00 16 138/82 - Exam Extremities: Present: edema (2+ pitting edema) Abdomen: Present: normal appearance, soft (Positive bowel sounds 4). Absent: distention, tenderness Incision: Present: normal, dry, intact (There is noted to be bruising above the incision and below the incision on the mons area, this is soft.). Absent: erythematous Uterus: Present: normal, firm. Absent: tenderness Assessment and Plan Assessment: Status post primary low transverse section with bilateral partial salpingectomy postoperative day #3 Chronic hypertension with superimposed preeclampsia with severe features-status post magnesium sulfate for seizure prophylaxis (1) 36 weeks gestation of Current Visit: Yes Status: Acute Code(s): Z3A.36 - 36 WEEKS GESTATION OF SNOMED Code(s): 17694333 (2) Chronic hypertension with superimposed pre-eclampsia Current Visit: Yes Status: Acute Code(s): O11.9 - PRE-EXISTING HYPERTENSION WITH PRE-ECLAMPSIA, UNSP TRIMESTER SNOMED Code(s): 85306031 (3) Group B Streptococcus carrier, +RV culture, currently Current Visit: Yes Status: Acute Code(s): O99.820 - STREPTOCOCCUS B CARRIER STATE COMPLICATING SNOMED Code(s): 6467818951848 Plan: Continue postoperative and care. Anticipate discharge home tomorrow. Continue to work on pain control with alternating pain medications.
[2021-08-14] MEDS: NIFEdipine XL 30 MG TAB.ER.24 PO SCH (14:30)
[2021-08-14 20:26] VITALS: RESP 16
[2021-08-15] MEDS: IBUPROFEN 600 MG TAB PO SCH ×3 (02:43→17:35)
[2021-08-15] MEDS: ACETAMINOPHEN TAB 500 MG TAB PO SCH ×2 (04:07→15:19)
--- NOTE | 2021-08-15 08:48 | P.PNOBGPC ---
Subjective - Subjective Principal diagnosis: Status post primary section with TL POD #4 Interval history: Patient states her pain is somewhat better today. She is noticing more swelling in her feet and legs. Lochia is minimal. She denies any chest pain or shortness of breath. She has been ambulating. Patient reports: Reports appetite normal, Reports voiding normally, Reports pain well controlled, Reports ambulating normally [place]: other (In level I nursery), bottle feeding Objective - Vital Signs Latest vital signs: Vital Signs Temp Pulse Resp BP Pulse Ox 08/15/21 00:00 97.7 F 87 16 135/86 08/14/21 20:00 98.2 F 80 16 151/88 08/14/21 17:55 88 18 157/93 08/14/21 16:00 98.2 F 76 18 169/100 99 08/14/21 14:25 18 158/105 99 08/14/21 11:45 75 163/99 08/14/21 10:00 98.0 F 70 18 162/94 97 - Exam Lungs: bilateral: normal Chest: Normal S1, Normal S2 Extremities: Present: edema (2-3+ pitting edema) Abdomen: Present: normal appearance, soft (Positive bowel sounds 4). Absent: distention, tenderness Incision: Present: erythematous (Bruising noted above and below the incision, soft and minimal tenderness), dry, intact Uterus: Present: normal, firm. Absent: tenderness Assessment and Plan Assessment: Status post primary low transverse section with bilateral partial salpingectomy postoperative day #4 Chronic hypertension with superimposed preeclampsia with severe features-status post magnesium sulfate for seizure prophylaxis (1) 36 weeks gestation of Current Visit: Yes Status: Acute Code(s): Z3A.36 - 36 WEEKS GESTATION OF SNOMED Code(s): 49778883 (2) Chronic hypertension with superimposed pre-eclampsia Current Visit: Yes Status: Acute Code(s): O11.9 - PRE-EXISTING HYPERTENSION WITH PRE-ECLAMPSIA, UNSP TRIMESTER SNOMED Code(s): 47408431 (3) Group B Streptococcus carrier, +RV culture, currently Current Visit: Yes Status: Acute Code(s): O99.820 - STREPTOCOCCUS B CARRIER STATE COMPLICATING SNOMED Code(s): 0862490454272 Plan: Added Procardia 30 XL to clonidine 0.3 mg 3 times a day yesterday due to increased blood pressures. Awaiting cardiology consult. We'll continue to monitor her today until cleared by cardiology. If cleared by cardiology, may be able to be discharged today. If blood pressures are still labile, may need to stay another day.
[2021-08-15] MEDS: PRENATAL VIT-IRON-FOLIC ACID 1 EACH CAP PO SCH (08:51)
[2021-08-15] MEDS: SIMETHICONE 80 MG CHEWABLE PO PRN (08:51)
[2021-08-15] MEDS: NIFEdipine XL 30 MG TAB.ER.24 PO SCH (08:52)
[2021-08-15] MEDS: cloNIDine HCL 0.1 MG TAB PO SCH ×2 (08:52→16:06)
[2021-08-15] MEDS: lamoTRIgine 100 MG TAB PO SCH (08:52)
[2021-08-15] MEDS: LEVOTHYROXINE 75 MCG TAB PO SCH (08:53)
[2021-08-15] MEDS ORDERED: NIFEdipine XL 30 MG TAB.ER.24 PO STA (08:59)
[2021-08-15] MEDS ORDERED: VILAZODONE HCL PO SCH (09:00)
--- NOTE | 2021-08-15 11:01 | P.CRDCN ---
History of Present Illness History of present illness: HISTORY OF PRESENTING ILLNESS This is a pleasant 40-year-old female past medical history significant for vaping use, hypertension, bipolar disorder, ADHD, 36 weeks . She follows in the office with Dr. Nava. We have been asked to see in consultation for hypertension. Patient was admitted to the hospital on 08/10/2021 for induction of labor due to chronic hypertension with superimposed preeclampsia. She was seen in the outpatient OB office and was having high blood pressure 160/110, increased swelling in hands and face. On 08/11/2021, patient underwent section with bilateral partial salpingectomy with Dr. Gallegos. Patient seen and examined at bedside, overall she is feeling well. She denies a chest pain, shortness of breath, lightheadedness, dizziness, palpitations. Yesterday she was started on nifedipine 30 mg daily and she is also maintained on her home clonidine 0.3 mg 3 times a day. Her blood pressure improved to 135/86, slightly elevated this morning at 153/84. Heart rates up in the 70s80s, she is afebrile and maintaining oxygen saturations on room air DIAGNOSTICS Echocardiogram in the office on 07/11/2021 revealed EF 5560% mild to moderate mitral regurgitation, trace to mild tricuspid regurgitation EKG in the office 05/2021 revealed sinus rhythm HR 97, no ST-T wave abnormalities Laboratory reviewed on 08/10-08/12 BUN 9, serum and 0.5, WBC 16.1, hemoglobin 9.8, platelets 276 Current cardiac medications include nifedipine 30 mg daily, clonidine 0.3 mg TID REVIEW OF SYSTEMS At the time of my exam: CONSTITUTIONAL: Denies fever or chills. CARDIOVASCULAR: Denies chest pain, shortness of breath, orthopnea, PND or palpitations. RESPIRATORY: Denies cough. GASTROINTESTINAL: Denies abdominal pain, diarrhea, constipation, nausea or vomiting. MUSCULOSKELETAL: Denies myalgias. NEUROLOGIC: Denies numbness, tingling, headacbe or weakness. ENDOCRINE: Denies fatigue, weight change, polydipsia or polyurina. GENITOURINARY: Denies burning, hematuria or urgency with micturation. HEMATOLOGIC: Denies history of anemia or bleeding. PHYSICAL EXAMINATION Vitals reviewed CONSTITUTIONAL: No apparent distress. HEENT: Head is normocephalic. Pupils are equal, round. Sclerae anicteric. Mucous membranes of the mouth are moist. No JVD. No carotid bruit. CHEST EXAMINATION: Lungs are clear to auscultation. No chest wall tenderness is noted on palpation or with deep breathing. HEART EXAMINATION: Regular rate and rhythm. S1, S2 heard. No murmurs, gallops or rub. ABDOMEN: Soft, nontender. Positive bowel sounds. EXTREMITIES: 2+ peripheral pulses, no lower extremity edema and no calf tenderness. NEUROLOGIC EXAMINATION: Patient is awake, alert and oriented x3. ASSESSMENT Hypertension Status post section and bilateral partial salpingectomy on 08/11/2021 Preeclampsia History of bipolar disorder History of ADHD PLAN We will increase patient's nifedipine to 60 mg daily. From cardiology perspective patient is stable and there are improvement in patient's blood pressure with current medication. Recommend continuing nifedipine 60 mg daily and follow up with Dr. Nava outpatient 08/28/21 at 2:15PM. Nurse practitioner note has been reviewed by physician. Signing provider agrees with the documented findings, assessment, and plan of care. Past Medical History Past Medical History: Hypertension, Thyroid Disorder Additional Past Medical History / Comment(s): b 12 deficiency History of Any Multi-Drug Resistant Organisms: None Reported Past Surgical History: Breast Surgery, Orthopedic Surgery (Carpal tunnel left), Tonsillectomy Additional Past Surgical History / Comment(s): breast reduction, glaucoma surgery Past Anesthesia/Blood Transfusion Reactions: No Reported Reaction Past Psychological History: ADD/ADHD, Bipolar, Depression Smoking Status: Vaper Past Alcohol Use History: None Reported Past Drug Use History: None Reported Additional Drug Use History / Comment(s): 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 She has been off of Suboxone since at least 2015 - Past Family History Mother Family Medical History: Deep Vein Thrombosis (DVT) Medications and Allergies Home Medications Medication Instructions Recorded Confirmed Type Pnv,Calcium 72/Iron/Folic Acid 1 each PO DAILY 08/17/15 08/10/21 History [ Plus Tablet] lamoTRIgine [LaMICtal] 100 mg PO DAILY 09/11/15 08/10/21 History Vilazodone HCl [Viibryd] 20 mg PO DAILY 06/22/21 08/10/21 History Aspirin 81 mg PO DAILY 06/23/21 08/10/21 History Levothyroxine Sodium [Synthroid] 150 mcg PO DAILY 06/23/21 08/10/21 History cloNIDine HCL [Catapres] 0.3 mg PO TID 06/23/21 08/10/21 History NIFEdipine XL [Procardia XL] 60 mg PO DAILY 30 Days #30 tablet 08/15/21 Rx Allergies Allergy/AdvReac Type Severity Reaction Status Date / Time No Known Allergies Allergy Verified 08/10/21 10:40 Physical Exam Vitals: Vital Signs Temp Pulse Resp BP Pulse Ox 08/14/21 11:45 75 163/99 08/14/21 10:00 98.0 F 70 18 162/94 97 08/14/21 08:00 98.2 F 85 18 160/97 99 08/14/21 03:47 79 16 150/89 96 08/14/21 00:45 97.5 F L 84 16 147/89 97 08/13/21 22:50 91 18 145/91 97 08/13/21 17:52 143/84 08/13/21 16:00 98.0 F 78 16 158/99 Intake and Output 08/13/21 08/14/21 08/14/21 22:59 06:59 14:59 Other: Voiding Method Toilet Results 08/12/21 12:01 08/10/21 11:25 Current Medications Generic Name Dose Route Start Last Admin Trade Name Freq PRN Reason Stop Dose Admin Acetaminophen 1,000 mg 08/11/21 04:15 08/14/21 06:48 Acetaminophen Tab 500 Mg Tab PO 1,000 mg Q6H AURE Administration Clonidine 0.3 mg 08/10/21 22:00 08/14/21 08:25 Clonidine Hcl 0.1 Mg Tab PO 0.3 mg TID AURE Administration Diphenhydramine HCl 25 mg 08/11/21 01:30 Diphenhydramine 25 Mg Cap PO Q6HR PRN Mild Itching Diphenhydramine HCl 50 mg 08/11/21 01:30 Diphenhydramine 50 Mg Cap PO Q6HR PRN Moderate to Severe Itching Emollient Ointment 1 applic 08/11/21 01:30 Lanolin Cream 5 Gm Tube TOPICAL Q1HR PRN Breast Feeding Hydrocortisone 1 applic 08/11/21 01:30 Hydrocortisone 2.5% Rectal Cream 30 Gm Tube RECTAL BID PRN Hemorrhoids Hydromorphone HCl 10 mg 02/26/22 01:30 Hydromorphone Power Chisel Operator 10 Mg/50 Ml Bag IV PER PROTOCOL PRN Pain Control Protocol Ibuprofen 600 mg 08/11/21 07:15 08/14/21 11:54 Ibuprofen 600 Mg Tab PO 600 mg Q6H AURE Administration Lamotrigine 100 mg 08/11/21 09:00 08/14/21 08:24 Lamotrigine 100 Mg Tab PO 100 mg DAILY AURE Administration Levothyroxine Sodium 150 mcg 08/11/21 06:30 08/14/21 06:48 Levothyroxine 75 Mcg Tab PO 150 mcg DAILY@0630 AURE Administration Multivi/Iron Carb/Fe Sulf/FA/Prenat 1 each 08/11/21 09:00 08/14/21 08:24 Wdg-Ymwa-Gxtqx Acid 1 Each Cap PO 1 each DAILY AURE Administration Nifedipine 30 mg 08/15/21 09:00 Nifedipine Xl 30 Mg Tab.Er.24 PO DAILY AURE Vilazodone Hcl [ 20 mg 08/11/21 09:00 08/14/21 08:26 Viibryd] PO 20 mg DAILY AURE Administration Oxycodone HCl 5 mg 08/11/21 01:30 08/13/21 00:24 Oxycodone Hcl 5 Mg Tab PO 5 mg Q4HR PRN Administration Pain Scale 4 - 6 Oxycodone HCl 10 mg 08/11/21 01:30 08/14/21 08:22 Oxycodone Hcl 5 Mg Tab PO 10 mg Q4HR PRN Administration Pain Scale 7 - 10 Senna/Docusate Sodium 2 each 08/11/21 08:00 08/14/21 08:24 Sennosides-Docusate Sodium 1 Each Tab PO 2 each BID@08,1999 [facility] Administration Simethicone 80 mg 08/11/21 01:30 08/12/21 13:55 Simethicone 80 Mg Chewable PO 80 mg PCHS PRN Administration Indigestion Witch Marielle 1 each 08/11/21 01:30 Witch Marielle 1 Each Med..Pad TOPICAL DAILY PRN Perineal Discomfort Zolpidem Tartrate 5 mg 08/11/21 01:30 Zolpidem 5 Mg Tab PO HS PRN Insomnia Intake and Output 08/13/21 08/14/21 08/14/21 22:59 06:59 14:59 Other: Voiding Method Toilet 08/12/21 12:01 08/10/21 11:25
--- NOTE | 2021-08-15 13:38 | P.DS ---
Providers Date of admission: 08/10/21 10:32 Expected date of discharge: 08/15/21 Attending physician: Pham Gallegos Consults: 08/14/21 12:00 Consult Physician Urgent Consulting Provider: Gerson Viera Consult Reason/Comments: chronic HTN, preeclampsia Do you want consulting provider notified?: Yes Primary care physician: Stated None - Discharge Diagnosis(es) (1) 36 weeks gestation of Current Visit: Yes Status: Acute (2) Chronic hypertension with superimposed pre-eclampsia Current Visit: Yes Status: Acute (3) Group B Streptococcus carrier, +RV culture, currently Current Visit: Yes Status: Acute Hospital Course: This is a 40-year-old female 4 para 0 at 36 and one sevenths weeks who presented with chronic hypertension with superimposed preeclampsia with severe features noted. She underwent oxytocin induction of labor and then delivered via section due to tachycardia after she started pushing. She delivered a viable male with scores of 0 at 1 minute 55 minutes and 7 at 10 minutes with nuchal cord times one and infant weight of 7 pounds 1.2 ounces. Her course has been complicated by some elevated blood pressures. She was continued on her clonidine 0.3 mg 3 times a day and then Procardia 30 mg XL was added yesterday. Cardiology saw her today and increased that to 60 XL daily. She denies any headaches or blurry vision. She does complain of leg swelling. Vital signs are otherwise stable other than some mildly elevated blood pressures at this time. Cardiology has cleared her for discharge. She is passing flatus and bowel movement. She is urinating. She is bottle feeding. Baby is still in level I nursery. Impression is status post primary low transverse section with bilateral partial salpingectomy on 08/11/2021, chronic hypertension with superimposed preeclampsia-status post magnesium sulfate seizure prophylaxis. Plan is to discharge home today. She will be given a prescription for ibuprofen and [place] 7.5/325. She has been counseled regarding opioid use and signed. She is advised to follow up in the office in 1 week for a postoperative check and in 6 weeks for check. She is advised to follow up with cardiology as scheduled. Patient Condition at Discharge: Stable Plan - Discharge Summary New Discharge Prescriptions: New NIFEdipine XL [Procardia XL] 60 mg PO DAILY 30 Days #30 tablet HYDROcodone/APAP 7.5-325MG [[place] 7.5-325] 1 tab PO Q6HR PRN #28 tab PRN Reason: Moderate To Severe Pain Ibuprofen [Motrin] 600 mg PO Q6H #60 tab Continue Pnv,Calcium 72/Iron/Folic Acid [ Plus Tablet] 1 each PO DAILY lamoTRIgine [LaMICtal] 100 mg PO DAILY Levothyroxine Sodium [Synthroid] 150 mcg PO DAILY Vilazodone HCl [Viibryd] 20 mg PO DAILY cloNIDine HCL [Catapres] 0.3 mg PO TID Discontinued Aspirin 81 mg PO DAILY Discharge Medication List Pnv,Calcium 72/Iron/Folic Acid [ Plus Tablet] 1 each PO DAILY 08/17/15 [History] lamoTRIgine [LaMICtal] 100 mg PO DAILY 09/11/15 [History] Vilazodone HCl [Viibryd] 20 mg PO DAILY 06/22/21 [History] Levothyroxine Sodium [Synthroid] 150 mcg PO DAILY 06/23/21 [History] cloNIDine HCL [Catapres] 0.3 mg PO TID 06/23/21 [History] HYDROcodone/APAP 7.5-325MG [[place] 7.5-325] 1 tab PO Q6HR PRN #28 tab 08/15/21 [Rx] Ibuprofen [Motrin] 600 mg PO Q6H #60 tab 08/15/21 [Rx] NIFEdipine XL [Procardia XL] 60 mg PO DAILY 30 Days #30 tablet 08/15/21 [Rx] Follow up Appointment(s)/Referral(s): Bernardo Nava DO [STAFF PHYSICIAN] - 08/27/21 2:15 pm Pham Gallegos DO [Doctor of Osteopathic Medicine] - 09/18/21 3:30 pm (c/s post op appt-08/21/2021@1:30pm) Activity/Diet/Wound Care/Special Instructions: Instructions 1. Do not begin any exercise program for 3 weeks. 2. Do not resume sexual relations for 3 weeks or longer if uncomfortable. 3. You may take tub baths or showers at any time. 4. You may use tampons if desired after 3 weeks. 5. Keep the area of episiotomy (stitches) clean and dry. 6. If you are not nursing, wear a good fitting, supportive bra during the day and limit fluid intake for at least 1 week to prevent breast engorgement. 7. Call the office, [phone], within the next week to make appointment for your 6 week checkup if it has not already been made. 8. Report any of the following occurrences to the doctor promptly: a. Heavy, excessive bleeding b. Chills, fever c. Burning or frequency of urination d. Pain or redness and breasts if nursing e. Increasing pain or swelling in episiotomy (stitches). In addition to the above instructions, the following additional should be followed: 1. No heavy lifting or straining (exercising) until after 6 week checkup. 2. Keep abdominal incision clean and dry: You may wear a dressing if more comfortable. 3. Make office appointment for 10 days after going home or as instructed by her doctor. Discharge Disposition: HOME SELF-CARE
[2021-08-15 16:24] VITALS: BP 136/89; PULSE 110; TEMP 97.8
== END 2021-08-15 19:00 | disposition home or self-care (01) | DRG 785 ==
LOC: 4FBP 10:32
PROVIDERS: ADMIT Obstetrics & Gynecology; ATTEND Obstetrics & Gynecology
PROC: 0UB70ZZ Excision of Bilateral Fallopian Tubes, Open Approach (ICD-10-PCS; 2021-08-11)
PROC: 3E033VJ Introduction of Other Hormone into Peripheral Vein, Percutaneous Approach (ICD-10-PCS; 2021-08-11)
PROC: 10907ZC Drainage of Amniotic Fluid, Therapeutic from Products of Conception, Via Natural or Artificial Opening (ICD-10-PCS; 2021-08-11)
PROC: 4A0HXCZ Measurement of Products of Conception, Cardiac Rate, External Approach (ICD-10-PCS; 2021-08-11)
PROC: 10D00Z1 Extraction of Products of Conception, Low, Open Approach (ICD-10-PCS; principal; 2021-08-11 00:11)
DX: O11.4 Pre-existing hypertension with pre-eclampsia, complicating childbirth (principal); O76 Abnormality in fetal heart rate and rhythm complicating labor and delivery; F31.9 Bipolar disorder, unspecified; F90.9 Attention-deficit hyperactivity disorder, unspecified type; L29.9 Pruritus, unspecified; E07.9 Disorder of thyroid, unspecified; N83.8 Other noninflammatory disorders of ovary, fallopian tube and broad ligament; I08.3 Combined rheumatic disorders of mitral, aortic and tricuspid valves; O99.42 Diseases of the circulatory system complicating childbirth; O34.83 Maternal care for other abnormalities of pelvic organs, third trimester; O99.72 Diseases of the skin and subcutaneous tissue complicating childbirth; O99.824 Streptococcus B carrier state complicating childbirth; E53.8 Deficiency of other specified B group vitamins; O99.284 Endocrine, nutritional and metabolic diseases complicating childbirth; O69.81X0 Labor and delivery complicated by cord around neck, without compression, not applicable or unspecified; O99.344 Other mental disorders complicating childbirth; Z30.2 Encounter for sterilization; Z37.0 Single live birth; Z3A.36 36 weeks gestation of pregnancy; Z79.82 Long term (current) use of aspirin; Z79.890 Hormone replacement therapy; Z79.899 Other long term (current) drug therapy; Z86.16 Personal history of COVID-19
CPT/HCPCS: 81003; 82565; 82570; 83615; 84156; 84450; 84460; 84520; 84550; 85025; 88302; 88307

== ENCOUNTER → 2022-09-24 | Outpatient (CLI) | payer BC, OTHER ==
--- NOTE | 2022-09-24 08:55 | XR ---
EXAMINATION TYPE: XR foot complete LT DATE OF EXAM: 09/24/2022 CLINICAL HISTORY: pain TECHNIQUE: Frontal, lateral and oblique images of the left foot are obtained. COMPARISON: None. FINDINGS: There is callus formation noted about the distal aspect of the left second metatarsal diaph ysis into a lesser extent the third with nonacute fracture seen. Fracture line continues to be visibl e at the second metatarsal suggesting possible nonunion or partial nonunion. Correlate clinically. IMPRESSION: As above
== END | disposition home or self-care (01) ==
LOC: RADXRMAIN 08:24
PROVIDERS: ATTEND Family Medicine
DX: M79.672 Pain in left foot (principal)

== ENCOUNTER → 2022-11-15 | Outpatient (CLI) | payer BC ==
--- NOTE | 2022-11-15 18:53 | CT ---
EXAMINATION TYPE: CT foot LT wo con CT DLP: 337.7 mGycm, Automated exposure control for dose reduction was used. DATE OF EXAM: 11/15/2022 6:42 PM COMPARISON: Left foot radiograph 09/24/2022 CLINICAL INDICATION:Female, 42 years old with history of Left foot; S92.325G NONDISP FX OF 2ND METATA RSAL B; PHH, fx 2nd metatarsal since June TECHNIQUE: Axial images were obtained of the left foot without the use of IV contrast. Additional co simone and sagittal reformatted images and soft tissue and bone window were obtained for review. 3-D r econstruction was created on a separate workstation. FINDINGS: Redemonstration of healing changes of second and third metatarsal midshaft fractures with s urrounding callus formation. No fracture line is identified involving the second metatarsal. There is an oblique fracture line still demonstrated involving the third metatarsal (series 7, image 21). No new fractures. No dislocation. No significant soft tissue edema. IMPRESSION: Healing changes of second and third metatarsal midshaft fractures with callus formation. No fracture line is identified involving the second metatarsal. There is an oblique fracture line still demonstra mireya involving the third metatarsal suspicious for partial nonunion.
== END | disposition home or self-care (01) ==
LOC: RADCTMAIN 18:19
PROVIDERS: ATTEND Podiatrist
DX: S92.325G Nondisplaced fracture of second metatarsal bone, left foot, subsequent encounter for fracture with delayed healing (principal)

== ENCOUNTER 2023-02-27 11:31 | Emergency (ER) | payer BC ==
[2023-02-27 12:17] LABS: Basophils % (A) 0 %; Eosinophils % (A) 1 %; HCT 39.9 % (34.0-46.0); HGB 13.5 gm/dL (11.4-16.0); Lymphocytes # (A) 2.7 k/uL (1.0-4.8); Lymphocytes % (A) 35 %; MCH 31.1 pg (25.0-35.0); MCHC 33.8 g/dL (31.0-37.0); Mean Platelet Volume 7.2; Monocytes # (A) 0.4 k/uL (0-1.0); Monocytes % (A) 5 %; Neutrophils # (A) 4.4 k/uL (1.3-7.7); Neutrophils % (A) 57 %; Platelet Count 355 k/uL (150-450); RBC 4.33 m/uL (3.80-5.40); RDW 12.5 % (11.5-15.5); WBC 7.7 k/uL (3.8-10.6)
[2023-02-27 12:34] LABS: ALT 19 U/L (4-34); AST 22 U/L (14-36); African American GFR (CKD) >90 (>60 ml/min/1.73 sqM); Albumin 5.1 g/dL (3.5-5.0); Alkaline Phosphatase 38 U/L (38-126); Anion Gap 14 mmol/L; Blood Urea Nitrogen 6 mg/dL (7-17); Calcium 10.4 mg/dL (8.4-10.2); Carbon Dioxide 21 mmol/L (22-30); Chloride 104 mmol/L (98-107); Glucose 132 mg/dL (74-99); Non-African American GFR(CKD) >90 (>60 ml/min/1.73 sqM); Potassium 4.1 mmol/L (3.5-5.1); Sodium 139 mmol/L (137-145); Total Bilirubin 0.5 mg/dL (0.2-1.3); Total Protein 8.5 g/dL (6.3-8.2)
[2023-02-27] MEDS ORDERED: hydrALAZINE HCL 20 MG/ML 1 ML VIAL IVP STA (13:16)
[2023-02-27 14:09] LABS: Appearance,Urine Clear (Clear); Bilirubin,Urine Negative (Negative); Blood,Urine Negative (Negative); Color,Urine Colorless; Glucose,Urine (UA) Negative (Negative); Ketones,Urine Negative (Negative); Leukocyte Esterase,Urine Negative (Negative); Nitrite,Urine Negative (Negative); Protein,Urine Negative (Negative); Specific Gravity,Urine 1.001 (1.001-1.035); Urobilinogen,Urine <2.0 mg/dL (<2.0)
--- NOTE | 2023-02-27 15:11 | ED ---
Dizziness HPI - General Chief Complaint: Dizziness Stated Complaint: High Blood pressure Time Seen by Provider: 02/27/23 11:45 Source: patient, EMS Mode of arrival: EMS Limitations: no limitations - History of Present Illness Initial Comments: 42 year old female presents with high blood pressure. STates she has a history of high blood pressure, araceli while . Recently she has been having some headaches and dizzy spells. Had one at work today and noted her bp was extremely high. She has clonidine left over from when she was . States she took one and called EMS. She complains of headache without vision changes. No chest pain or shortness of breath. No weakness. No nausea or vomiting. No other alleviating, precipitating or modifying factors. - Related Data Home Medications Medication Instructions Recorded Confirmed Vilazodone HCl [Viibryd] 40 mg PO DAILY 06/22/21 02/27/23 Levothyroxine Sodium [Synthroid] 150 mcg PO DAILY 06/23/21 02/27/23 cloNIDine HCL [Catapres] 0.3 mg PO TID PRN 06/23/21 02/27/23 Dextroamphetamine/Amphetamine 30 mg PO DAILY 02/27/23 02/27/23 [Adderall] HYDROcodone/APAP 5-325MG [[place] 1 tab PO TID PRN 02/27/23 02/27/23 5-325] Ibuprofen [Motrin] 600 mg PO Q8HR PRN 02/27/23 02/27/23 lamoTRIgine [LaMICtal] 200 mg PO DAILY 02/27/23 02/27/23 Previous Rx's Medication Instructions Recorded amLODIPine [Norvasc] 5 mg PO DAILY #30 tab 02/27/23 Allergies Allergy/AdvReac Type Severity Reaction Status Date / Time No Known Allergies Allergy Verified 02/27/23 12:50 Review of Systems ROS Statement: Those systems with pertinent positive or pertinent negative responses have been documented in the HPI. ROS Other: All systems not noted in ROS Statement are negative. Past Medical History Past Medical History: Hypertension, Thyroid Disorder Additional Past Medical History / Comment(s): b 12 deficiency History of Any Multi-Drug Resistant Organisms: None Reported Past Surgical History: Breast Surgery, Orthopedic Surgery, Tonsillectomy Additional Past Surgical History / Comment(s): breast reduction, glaucoma surgery Past Anesthesia/Blood Transfusion Reactions: No Reported Reaction Past Psychological History: ADD/ADHD, Bipolar, Depression Smoking Status: Vaper Past Alcohol Use History: None Reported Past Drug Use History: None Reported - Past Family History Mother Family Medical History: Deep Vein Thrombosis (DVT) General Exam Limitations: no limitations General appearance: alert, in no apparent distress Head exam: Present: atraumatic, normocephalic, normal inspection Eye exam: Present: normal appearance, PERRL, EOMI. Absent: scleral icterus, conjunctival injection, periorbital swelling ENT exam: Present: normal exam, mucous membranes moist Neck exam: Present: normal inspection. Absent: tenderness, meningismus, lympha denopathy Respiratory exam: Present: normal lung sounds bilaterally. Absent: respiratory distress, wheezes, rales, rhonchi, stridor Cardiovascular Exam: Present: regular rate, normal rhythm, normal heart sounds. Absent: systolic murmur, diastolic murmur, rubs, gallop, clicks GI/Abdominal exam: Present: soft, normal bowel sounds. Absent: distended, tenderness, guarding, rebound, rigid Extremities exam: Present: normal inspection, full ROM, normal capillary refill. Absent: tenderness, pedal edema, joint swelling, calf tenderness Back exam: Present: normal inspection Neurological exam: Present: alert, oriented X3, CN II-XII intact Psychiatric exam: Present: normal affect, normal mood Skin exam: Present: warm, dry, intact, normal color. Absent: rash Course Vital Signs 02/27/23 02/27/23 02/27/23 11:34 11:45 12:00 Temperature 98.2 F Pulse Rate 86 80 Respiratory 18 42 H Rate Blood Pressure 169/102 176/115 169/107 O2 Sat by Pulse 97 100 94 L Oximetry 02/27/23 02/27/23 02/27/23 12:12 12:15 12:30 Temperature 98.9 F Pulse Rate 84 78 99 Respiratory 18 41 H 35 H Rate Blood Pressure 159/101 159/101 174/102 O2 Sat by Pulse 98 97 100 Oximetry 02/27/23 02/27/23 02/27/23 12:45 12:54 13:00 Temperature Pulse Rate 92 97 70 Respiratory 10 L 22 9 L Rate Blood Pressure 179/108 167/112 167/112 O2 Sat by Pulse 99 100 98 Oximetry 02/27/23 02/27/23 02/27/23 13:15 13:30 13:41 Temperature Pulse Rate 84 83 70 Respiratory 40 H 12 18 Rate Blood Pressure 178/112 170/124 143/111 O2 Sat by Pulse 97 100 100 Oximetry 02/27/23 02/27/23 02/27/23 13:45 14:00 14:16 Temperature Pulse Rate 101 H 91 100 Respiratory 29 H 18 18 Rate Blood Pressure 143/111 157/98 148/82 O2 Sat by Pulse 100 100 100 Oximetry 02/27/23 15:56 Temperature Pulse Rate 85 Respiratory 20 Rate Blood Pressure 144/91 O2 Sat by Pulse 100 Oximetry Medical Decision Making - Medical Decision Making Was pt. sent in by a medical professional or institution (, JAISON, SOUND EDITOR, urgent care, hospital, or fdc...) When possible be specific @ -No Did you speak to anyone other than the patient for history (EMS, parent, family, police, friend...)? What history was obtained from this source @ -EMS Did you review nursing and triage notes (agree or disagree)? Why? @ -I reviewed and agree with nursing and triage notes Were old charts reviewed (outside hosp., previous admission, EMS record, old EKG, old radiological studies, urgent care reports/EKG's, fdc records)? Report findings @ -No old charts were reviewed Differential Diagnosis (chest pain, altered mental status, abdominal pain women, abdominal pain men, vaginal bleeding, weakness, fever, dyspnea, syncope, headache, dizziness, GI bleed, back pain, seizure, CVA, palpatations, mental health, musculoskeletal)? @ -hypertension, anxiety, anerysm, [place] EKG interpreted by me (3pts min.). @ -Yes and demonstrates sinus rhythm with rate 87. HI interval 187. QRS 101. QTC of 404. No acute ST segment elevations or depressions X-rays interpreted by me (1pt min.). @ -None done CT interpreted by me (1pt min.). @ -None done U/S interpreted by me (1pt. min.). @ -None done What testing was considered but not performed or refused? (CT, X-rays, U/S, labs)? Why? @ -None What meds were considered but not given or refused? Why? @ -None Did you discuss the management of the patient with other professionals (professionals i.e. , JAISON, SOUND EDITOR, lab, RT, psych nurse, social worker psychiatric, staking technician, te acher, space operations officer, assistant case manager)? Give summary @ -No Was smoking cessation discussed for >3mins.? @ -No Was critical care preformed (if so, how long)? @ -No Were there social determinants of health that impacted care today? How? (Homelessness, low income, unemployed, alcoholism, drug addiction, transportation, low edu. Level, literacy, decrease access to med. care, usp, rehab)? @ -No Was there de-escalation of care discussed even if they declined (Discuss DNR or withdrawal of care, Hospice)? DNR status @ -No What co-morbidities impacted this encounter? (DM, HTN, Smoking, COPD, CAD, Cancer, CVA, ARF, Chemo, Hep., AIDS, mental health diagnosis, sleep apnea, morbid obesity)? @ -htn Was patient admitted / discharged? Hospital course, mention meds given and rout e, prescriptions, significant lab abnormalities, going to OR and other pertinent info. @ -Patient placed into room 1. History obtained. LAbs conducted. Patient given 20 mg of hydralzine with marked improvement in bp. Patient will be placed on amlodipine. Must follow up with PCP. Keep a bp log. Return for any new or worsening symptoms Undiagnosed new problem with uncertain prognosis? @ -No Drug Therapy requiring intensive monitoring for toxicity (Heparin, Nitro, Insulin, Cardizem)? @ -No Were any procedures done? @ -No Diagnosis/symptom? @ -acute cephalgia, acute htn Acute, or Chronic, or Acute on Chronic? @ -acute Uncomplicated (without systemic symptoms) or Complicated (systemic symptoms)? @ -complicated Side effects of treatment? @ -No Exacerbation, Progression, or Severe Exacerbation? @ -No Poses a threat to life or bodily function? How? (Chest pain, [place], [place], pneumonia, PE, COPD, DKA, ARF, appy, cholecystitis, CVA, Diverticulitis, Homicidal, Suicidal, threat to staff... and all critical care pts) @ -No - Lab Data Result diagrams: 02/27/23 12:10 02/27/23 12:10 Lab Results 02/27/23 02/27/23 02/27/23 Range/Units 12:10 12:10 13:36 WBC 7.7 (3.8-10.6) k/uL RBC 4.33 (3.80-5.40) m/uL Hgb 13.5 (11.4-16.0) gm/dL Hct 39.9 (34.0-46.0) % MCV 92.0 (80.0-100.0) fL MCH 31.1 (25.0-35.0) pg MCHC 33.8 (31.0-37.0) g/dL RDW 12.5 (11.5-15.5) % Plt Count 355 (150-450) k/uL MPV 7.2 Neutrophils % 57 % Lymphocytes % 35 % Monocytes % 5 % Eosinophils % 1 % Basophils % 0 % Neutrophils # 4.4 (1.3-7.7) k/uL Lymphocytes # 2.7 (1.0-4.8) k/uL Monocytes # 0.4 (0-1.0) k/uL Eosinophils # 0.0 (0-0.7) k/uL Basophils # 0.0 (0-0.2) k/uL Sodium 139 (137-145) mmol/L Potassium 4.1 (3.5-5.1) mmol/L Chloride 104 (98-107) mmol/L Carbon Dioxide 21 L (22-30) mmol/L Anion Gap 14 mmol/L BUN 6 L (7-17) mg/dL Creatinine 0.61 (0.52-1.04) mg/dL Est GFR (CKD-EPI)AfAm >90 (>60 ml/min/1.73 sqM) Est GFR (CKD-EPI)NonAf >90 (>60 ml/min/1.73 sqM) Glucose 132 H (74-99) mg/dL Calcium 10.4 H (8.4-10.2) mg/dL Total Bilirubin 0.5 (0.2-1.3) mg/dL AST 22 (14-36) U/L ALT 19 (4-34) U/L Alkaline Phosphatase 38 (38-126) U/L Total Protein 8.5 H (6.3-8.2) g/dL Albumin 5.1 H (3.5-5.0) g/dL Urine Color Colorless Urine Appearance Clear (Clear) Urine pH 7.0 (5.0-8.0) Ur Specific [place] 1.001 (1.001-1.035) Urine Protein Negative (Negative) Urine Glucose (UA) Negative (Negative) Urine Ketones Negative (Negative) Urine Blood Negative (Negative) Urine Nitrite Negative (Negative) Urine Bilirubin Negative (Negative) Urine Urobilinogen <2.0 (<2.0) mg/dL Ur Leukocyte Esterase Negative (Negative) Urine HCG, Qual (Not Detectd) 02/27/23 Range/Units 13:36 WBC (3.8-10.6) k/uL RBC (3.80-5.40) m/uL Hgb (11.4-16.0) gm/dL Hct (34.0-46.0) % MCV (80.0-100.0) fL MCH (25.0-35.0) pg MCHC (31.0-37.0) g/dL RDW (11.5-15.5) % Plt Count (150-450) k/uL MPV Neutrophils % % Lymphocytes % % Monocytes % % Eosinophils % % Basophils % % Neutrophils # (1.3-7.7) k/uL Lymphocytes # (1.0-4.8) k/uL Monocytes # (0-1.0) k/uL Eosinophils # (0-0.7) k/uL Basophils # (0-0.2) k/uL Sodium (137-145) mmol/L Potassium (3.5-5.1) mmol/L Chloride (98-107) mmol/L Carbon Dioxide (22-30) mmol/L Anion Gap mmol/L BUN (7-17) mg/dL Creatinine (0.52-1.04) mg/dL Est GFR (CKD-EPI)AfAm (>60 ml/min/1.73 sqM) Est GFR (CKD-EPI)NonAf (>60 ml/min/1.73 sqM) Glucose (74-99) mg/dL Calcium (8.4-10.2) mg/dL Total Bilirubin (0.2-1.3) mg/dL AST (14-36) U/L ALT (4-34) U/L Alkaline Phosphatase (38-126) U/L Total Protein (6.3-8.2) g/dL Albumin (3.5-5.0) g/dL Urine Color Urine Appearance (Clear) Urine pH (5.0-8.0) Ur Specific [place] (1.001-1.035) Urine Protein (Negative) Urine Glucose (UA) (Negative) Urine Ketones (Negative) Urine Blood (Negative) Urine Nitrite (Negative) Urine Bilirubin (Negative) Urine Urobilinogen (<2.0) mg/dL Ur Leukocyte Esterase (Negative) Urine HCG, Qual Not Detected (Not Detectd) Disposition Clinical Impression: Hypertension, Cephalgia Disposition: HOME SELF-CARE Condition: Stable Instructions (If sedation given, give patient instructions): Chronic Hyper tension (ED) Additional Instructions: Keep a blood pressure log. Measure your blood pressure at least twice a day. Take the amlodipine 5 mg daily. If your blood pressure continues to remain high, you may take up to 10 mg a day. Use the clonidine if your bp remains above 140/90 only. Follow up with Dr. Wright for further evaluation and return for any new or worsening symptoms Prescriptions: amLODIPine [Norvasc] 5 mg PO DAILY #30 tab Is patient prescribed a controlled substance at d/c from ED?: No Referrals: Mars Wright MD [Primary Care Provider] - 1-2 days Time of Disposition: 15:28
[2023-02-27] MEDS ORDERED: ACETAMINOPHEN TAB 500 MG TAB PO STA (15:26)
[2023-02-27 16:04] VITALS: TEMP 98.9
[2023-02-27 16:05] VITALS: BP 144/91; PULSE 85; RESP 20
== END 2023-02-27 16:00 | disposition home or self-care (01) ==
LOC: EC 11:31
DX: R51.9 Headache, unspecified (principal); I10 Essential (primary) hypertension; E07.9 Disorder of thyroid, unspecified; F31.9 Bipolar disorder, unspecified; F90.9 Attention-deficit hyperactivity disorder, unspecified type; F17.290 Nicotine dependence, other tobacco product, uncomplicated; Z79.890 Hormone replacement therapy; Z79.899 Other long term (current) drug therapy
CPT/HCPCS: 36415; 93005; 80053; 85025; 81003; 81025; 99285; 96374; J0360

== ENCOUNTER → 2023-04-21 | Outpatient (CLI) | payer BC ==
--- NOTE | 2023-04-21 10:38 | US ---
EXAMINATION TYPE: US renal artery duplex complet DATE OF EXAM: 04/21/2023 COMPARISON: NONE CLINICAL INDICATION: Female, 42 years old with history of I10 ESSENTIAL (PRIMARY) HYPERTENSION; MEASUREMENTS: RENAL SIZE: Rt Kidney: 11.1 x 4.4 x 5.1cm Lt Kidney: 11.3 x 5.5 x 5.2cm RESISTANCE INDEX Right: 0.6 Left: 0.6 RA/AO RATIO (< 3.5 ) Right: 1.7 Left: 1.4 RA VELOCITY ( < 180 cm/s) Right: 156.2 Left: 130.1 IMPRESSION: No suspicious changes to suggest renal artery stenosis.
--- NOTE | 2023-04-21 13:23 | CT ---
EXAMINATION TYPE: CT abdomen pelvis wo/w con CT DLP: 1111.9 mGycm, Automated exposure control for dose reduction was used. DATE OF EXAM: 04/21/2023 1:06 PM COMPARISON: Ultrasound same day CLINICAL INDICATION:Female, 42 years old with history of Eval adrenal glands; Evaluate adrenal glands , hx HTN. TECHNIQUE: Axial CT of the ;CT abdomen pelvis wo/w con;Sagittal and coronal reformats were created o n a separate workstation. Contrast used:100 mL of Isovue 300 with IV Contrast, (none if empty) Oral contrast used: with Oral Contrast (none if empty) FINDINGS: LOWER CHEST: Unremarkable ABDOMEN LIVER: Unremarkable GALLBLADDER AND BILE DUCTS: Unremarkable. PANCREAS: Unremarkable. SPLEEN: Unremarkable. ADRENAL GLANDS: No evidence for adrenal mass. KIDNEYS AND URETERS: No evidence of hydronephrosis or renal calculus. The ureters are unremarkable. PELVIS BLADDER: Unremarkable REPRODUCTIVE: Unremarkable. ABDOMEN & PELVIS STOMACH AND BOWEL: No evidence of bowel obstruction. PERITONEUM/RETROPERITONEUM: No evidence of pneumoperitoneum or free fluid. VASCULATURE: No evidence of aortic aneurysm. The renal arteries appear patent without evidence for si gnificant stenosis at their origin. MUSCULOSKELETAL: No acute osseous abnormalities LYMPH NODES: No gross evidence for lymphadenopathy. SOFT TISSUE/ABDOMINAL WALL: Unremarkable IMPRESSION: 1. Normal appearance of the adrenal glands No evidence for mass. 2. Renal arteries appear patent without evidence for stenosis.
== END | disposition home or self-care (01) ==
LOC: RADUSWWP 08:51
PROVIDERS: ATTEND Internal Medicine
DX: I10 Essential (primary) hypertension (principal)
CPT/HCPCS: 93975; 74178; Q9967

== ENCOUNTER → 2023-06-30 | Outpatient (CLI) | payer BC | END | disposition home or self-care (01) | LOC: LABWHC1 14:07 | PROVIDERS: ATTEND Internal Medicine Endocrinology, Diabetes & Metabolism | DX: E03.8 Other specified hypothyroidism (principal) | CPT/HCPCS: 36415; 84443 ==

== ENCOUNTER → 2023-08-04 | Outpatient (CLI) | payer BC ==
[2023-08-04 19:56] LABS: ALT 17 U/L (8-44); AST 16 U/L (13-35); Albumin 4.9 g/dL (3.8-4.9); Albumin/Globulin Ratio 1.63 Ratio (1.60-3.17); Alkaline Phosphatase 35 U/L (41-126); Blood Urea Nitrogen 13.3 mg/dL (9.0-27.0); Calcium 10.4 mg/dL (8.7-10.3); Carbon Dioxide 27.5 mmol/L (21.6-31.8); Chloride 102 mmol/L (96-109); Glucose 91 mg/dL (70-110); Potassium 4.4 mmol/L (3.5-5.5); Sodium 142 mmol/L (135-145); Total Bilirubin 0.2 mg/dL (0.3-1.2); Total Protein 7.9 g/dL (6.2-8.2)
[2023-08-04 20:38] LABS: Follicle Stimulating Hormone 9.2 mIU/mL; Luteinizing Hormone 19.3 mIU/mL
== END | disposition home or self-care (01) ==
LOC: LABWHC1 13:10
PROVIDERS: ATTEND Internal Medicine Endocrinology, Diabetes & Metabolism
DX: R53.83 Other fatigue (principal)
CPT/HCPCS: 36415; 80053; 82024; 82306; 82533; 83001; 83002; 84146

== ENCOUNTER → 2023-08-05 | Outpatient (CLI) | payer BC | END | disposition home or self-care (01) | LOC: LABWHC1 10:06 | PROVIDERS: ATTEND Internal Medicine Endocrinology, Diabetes & Metabolism | DX: R53.83 Other fatigue (principal) | CPT/HCPCS: 36415; 82024; 82607 ==

== ENCOUNTER → 2024-04-08 | Outpatient (CLI) | payer BC, OTHER ==
--- NOTE | 2024-04-12 17:57 | MM ---
Reason for Exam: Screening (asymptomatic). Baseline mammogram. Patient History: Menarche at age 11. First Full-Term at age 40. Late child-bearing (after 30). 10/28/1997, Bilateral Reduction. Last menstrual period: 04/04/2024 Risk Values: Kelsie 5 year model risk: 1.0%. NCI Lifetime model risk: 14.6%. Prior Study Comparison: Patient's first Mammogram. Tissue Density: The breasts are heterogeneously dense, which may obscure small masses. Findings: Analyzed By CAD. Bilateral inferior dermal calcifications are benign. Areas of asymmetric density show no persisting abnormality on 3-D images. No significant mass, suspicious microcalcification, or other discrete abnormality is seen. Overall Assessment: Benign, BI-RAD 2 Management: Screening Mammogram of both breasts in 1 year. . Patient should continue monthly self-breast exams. A clinical breast exam by your physician is recommended on an annual basis. This exam should not preclude additional follow-up of suspicious palpable abnormalities. Note on Kelsie scores and lifetime risk: 1. A Kelsie score greater than 3% is considered moderate risk. If this is the case, consider specialist referral to assess eligibility for a risk reducing agent. 2. If overall lifetime risk for the development of breast cancer is 20% or higher, the patient may qualify for future screening with alternating mammogram and breast MRI. [facility], , 04/12/2024 5:54 PM. Electronically signed and approved by: Az Avila M.D. Radiologist
== END | disposition home or self-care (01) ==
LOC: RADMAMWWP 15:40
PROVIDERS: ATTEND Family Medicine
CPT/HCPCS: 77063; 77067